=== PATIENT | female | born 1950 | race Caucasian/White ===

== ENCOUNTER 2017-11-12 13:43 | Emergency (ER) | payer OTHER ==
[~2017-11-12] VITALS: Ht 165.1 cm; Wt 55.5 kg
[2017-11-12 14:27] VITALS: BP 163/120; PULSE 69; RESP 20; TEMP 98.8; O2SAT 100
--- NOTE | 2017-11-12 15:39 | RADRPT ---
EXAM DATE/TIME: 11/12/2017 15:15 [facility] COMPARISON: No previous studies available for comparison. INDICATIONS : Patient complains of headache. RADIATION DOSE: 56.35 CTDIvol (mGy) MEDICAL HISTORY : Hypertension. SURGICAL HISTORY : None. ENCOUNTER: Initial ACUITY: 1 day PAIN SCALE: 7/10 LOCATION: cranial TECHNIQUE: Multiple contiguous axial images were obtained of the head. Using automated exposure control and adj ustment of the mA and/or kV according to patient size, radiation dose was kept as low as reasonably a chievable to obtain optimal diagnostic quality images. DICOM format image data is available electro nically for review and comparison. FINDINGS: Mild cerebral atrophy is noted. Mild to moderate periventricular and subcortical white matter small v essel ischemic changes are noted bilaterally. There is no acute infarct, acute hemorrhage, midline sh ift or extra-axial fluid collections. CONCLUSION: 1. Mild cerebral atrophy. 2. [id number] periventricular and subcortical white matter small vessel ischemic changes bilate rally. 3. No acute infarct, acute hemorrhage, mass effect or extra-axial fluid collections. Phani Smith MD on November 12, 2017 at 15:35 Board Certified Radiologist. This report was verified electronically.
--- NOTE | 2017-11-12 21:54 | PD ---
Physical Exam Date Seen by Provider: Nov 12, 2017 Time Seen by Provider: 16:56 Narrative 67-year-old female presents to the emergency department for evaluation of hypertension. She reports associated headache with pain currently 02/12. She denies any chest pain. She was seen at [facility] for UTI and sepsis for 5 day stay. She was discharged 2 days ago. Moderate severity Data Data Last Documented VS Vital Signs Date Time Temp Pulse Resp B/P (MAP) Pulse Ox O2 Delivery O2 Flow Rate FiO2 11/12/17 14:27 98.8 69 20 163/120 (134) 100 Orders Orders Complete Blood Count With Diff (11/12/17 14:31) Comprehensive Metabolic Panel (11/12/17 14:31) Prothrombin Time / Inr (Pt) (11/12/17 14:31) Act Partial Throm Time (Ptt) (11/12/17 14:31) Ct Brain W/O Iv Contrast(Rout) (11/12/17 ) MDM Supervised Visit with [place]: No Narrative Course 67-year-old female presents to the emergency department for evaluation of hypertension and headache. Patient was initially seen in triage. Workup is initiated. The patient left AGAINST MEDICAL ADVICE before she can be moved to medical bed per Diagnosis Primary Impression: Left against medical advice Disposition: 07 AGAINST MEDICAL ADVICE Belinda Akbar Nov 12, 2017 21:54
== END 2017-11-12 23:50 | disposition left against medical advice (07) ==
LOC: NED 13:43
DX: R51 Headache (principal); I10 Essential (primary) hypertension
CPT/HCPCS: 70450; 99283

== ENCOUNTER 2017-11-18 12:09 | Emergency (ER) | payer OTHER ==
[~2017-11-18] VITALS: Ht 165.1 cm; Wt 56.0 kg
[2017-11-18 12:15] VITALS: BP 123/63; PULSE 64; RESP 22; TEMP 99.2; O2SAT 99
[2017-11-18] MEDS ORDERED: SODIUM CHLORIDE 0.9% FLUSH 10 ML FLUSH IV FLUSH PRN (15:00)
[2017-11-18] MEDS ORDERED: ONDANSETRON HCL 4 MG/2 ML VIAL IVP ONE (15:00)
[2017-11-18] MEDS ORDERED: SODIUM CHLORID 0.9% 500 ML INJ 500 ML IV ONE (15:00)
[2017-11-18 16:05] LABS: AMORPHOUS SEDIMENT, URINE RARE; BACTERIA, URINE RARE /hpf; BLOOD, URINE NEG (NEG); GLUCOSE,URINE NEG (NEG); HYALINE CAST, URINE 43 /lpf (RARE); KETONE, URINE TRACE mg/dL (NEG); MUCUS URINE FEW /lpf (OCC); NITRITE,URINE NEG (NEG); PH, URINE 5.5 (5.0-8.5); SQUAMOUS EPITHELIAL CELL URINE 6 /hpf (0-5); URINE LEUKOCYTE ESTERASE SMALL (NEG)
[2017-11-18 16:06] LABS: AUTOMATED NEUTROPHIL # 2.9 TH/MM3 (1.8-7.7); BASOPHIL # 0.1 TH/MM3 (0-0.2); BASOPHIL % 0.9 % (0.0-2.0); EOSINOPHIL # 0.1 TH/MM3 (0-0.4); EOSINOPHIL % 1.9 % (0.0-4.0); HEMATOCRIT 29.4 % (35.0-46.0); HEMOGLOBIN 9.8 GM/DL (11.6-15.3); LYMPH % 41.2 % (9.0-44.0); LYMPHOCYTE # 2.5 TH/MM3 (1.0-4.8); MEAN CELL VOLUME 92.3 FL (80.0-100.0); MEAN CORPUSCULAR HEMOGLOBIN 30.9 PG (27.0-34.0); MEAN CORPUSCULAR HGB CONC 33.5 % (32.0-36.0); MEAN PLATELET VOLUME 7.5 FL (7.0-11.0); MONO % 9.7 % (0.0-8.0); MONOCYTE # 0.6 TH/MM3 (0-0.9); NEUT % 46.3 % (16.0-70.0); PLATELET COUNT 322 TH/MM3 (150-450); RED BLOOD COUNT 3.18 MIL/MM3 (4.00-5.30); RED CELL DISTRIBUTION WIDTH 14.3 % (11.6-17.2); WHITE BLOOD COUNT 6.2 TH/MM3 (4.0-11.0)
[2017-11-18 16:07] LABS: BILIRUBIN, URINE NEG (NEG); URINE COLOR AMBER (YELLW/STRAW)
[2017-11-18 16:24] LABS: ALKALINE PHOSPHATASE 57 U/L (45-117); TOTAL BILIRUBIN ADULT 0.3 MG/DL (0.2-1.0); TOTAL PROTEIN 5.9 GM/DL (6.4-8.2)
[2017-11-18 16:26] LABS: INTERNATIONAL NORMALIZED RATIO 1.1 RATIO; PROTHROMBIN TIME - PATIENT 11.2 SEC (9.8-11.6)
[2017-11-18] MEDS ORDERED: cefTRIAXone INJ 1,000 MG in SODIUM CHLORIDE 0.9% INJ 100 ML IV ONE (16:30)
--- NOTE | 2017-11-18 16:33 | RADRPT ---
EXAM DATE/TIME: 11/18/2017 15:59 [facility] COMPARISON: No previous studies available for comparison. INDICATIONS : Abdomen pain nausea, vomiting and diarrhea ORAL CONTRAST: No oral contrast ingested. RADIATION DOSE: 4.69 CTDIvol (mGy) MEDICAL HISTORY : Cerebrovascular disease. Renal failure, chronic. Diabetes SURGICAL HISTORY : None. ENCOUNTER: Initial ACUITY: 2 weeks PAIN SCALE: 5/10 LOCATION: abdomen TECHNIQUE: Volumetric scanning of the abdomen and pelvis was performed. Using automated exposure control and ad justment of the mA and/or kV according to patient size, radiation dose was kept as low as reasonably achievable to obtain optimal diagnostic quality images. DICOM format image data is available electro nically for review and comparison. FINDINGS: LOWER LUNGS: There is minimal increased density at the left lung base likely related to mild atelectasis or consol idation. This does have a mild amount of pericardial fluid measuring up to 9 mm along the posterior d ependent aspect of the heart. LIVER: There is low density seen throughout the liver. Focal hepatic lesions are not seen in this noncontras t CT examination. Gallbladder is not visualized. SPLEEN: Normal size without lesion. PANCREAS: Within normal limits. KIDNEYS: Normal in size and shape. There is no mass, stone, or hydronephrosis. ADRENAL GLANDS: Within normal limits. VASCULAR: There is no aortic aneurysm. Atherosclerotic calcifications are present. BOWEL/MESENTERY: There is possible mild thickening of the small bowel in the right lower abdomen likely related to dis tami small bowel. Surrounding inflammatory changes not seen. No bowel dilatation is seen. ABDOMINAL WALL: Within normal limits. RETROPERITONEUM: There is no lymphadenopathy. BLADDER: No wall thickening or mass. REPRODUCTIVE: The uterus is not seen. INGUINAL: There is no lymphadenopathy or hernia. MUSCULOSKELETAL: There is a right hip prosthesis present. CONCLUSION: 1. Mild thickening of some distal small bowel potentially relate to processes such as enteritis. 2. Mild hepatic steatosis. Red Carolina MD on November 18, 2017 at 16:25 Board Certified Radiologist. This report was verified electronically.
[2017-11-18 16:38] LABS: ALBUMIN 2.5 GM/DL (3.4-5.0); ALT (GPT) 9 U/L (10-53); AST (GOT) 15 U/L (15-37); BICARBONATE 25.3 MEQ/L (21.0-32.0); BLOOD UREA NITROGEN 4 MG/DL (7-18); CALCIUM 9.7 MG/DL (8.5-10.1); CHLORIDE 112 MEQ/L (98-107); GLOMERULAR FILTRATION RATE 32 ML/MIN (>89); GLUCOSE,RANDOM 91 MG/DL (74-106); SODIUM (NA) 144 MEQ/L (136-145)
--- NOTE | 2017-11-18 18:51 | PD ---
HPI Chief Complaint: GI Complaint Time Seen by Provider: 14:42 Travel History International Travel<30 days: No Contact w/Intl Traveler<30days: No Traveled to known affect area: No History of Present Illness HPI Patient is a 67-year-old female who comes in complaining of nausea and vomiting for 2 weeks. Per grandson, they have been to an outside hospital several times in her discharged home each time. He says she is unable to keep anything down. She says today she was vomiting green bile. She did say that she ate some toast this morning and did not vomit. She says she has some pain to her upper abdomen. She denies chest pain or shortness of breath. She says she was diagnosed with a urinary tract infection, but she does not think it is gone away. She was taking a few days of Cipro. She denies fever or chills. Severity is mild to moderate. PFSH Past Medical History Cerebrovascular Accident: Yes Diabetes: Yes Patient Takes Glucophage: No Influenza Vaccination: No Past Surgical History Joint Replacement: Yes (HIP) Social History Alcohol Use: No Tobacco Use: No Substance Use: No Allergies-Medications (Allergen,Severity, Reaction): Coded Allergies: codeine (Verified Allergy, Mild, 11/18/17) stomach upset Review of Systems Except as stated in HPI: all other systems reviewed are Neg General / Constitutional: No: Fever, Chills HENT: No: Headaches, Lightheadedness Cardiovascular: No: Chest Pain or Discomfort Respiratory: No: Shortness of Breath Gastrointestinal: Positive: Nausea, Vomiting Musculoskeletal: No: Myalgias Skin: No Rash, No Change in Pigmentation Physical Exam Narrative GENERAL: Awake and alert, in no acute distress. SKIN: Focused skin assessment warm/dry. HEAD: Atraumatic. Normocephalic. EYES: Pupils equal and round. No scleral icterus. ENT: No nasal bleeding or discharge. Mucous membranes pink and moist. NECK: Trachea midline. No JVD. CARDIOVASCULAR: Regular rate and rhythm. No murmur appreciated. RESPIRATORY: No accessory muscle use. Clear to auscultation. Breath sounds equal bilaterally. GASTROINTESTINAL: Abdomen soft, nondistended. Tender to palpation of the suprapubic area. MUSCULOSKELETAL: No obvious deformities. No clubbing. No cyanosis. No edema. NEUROLOGICAL: Awake and alert. No obvious cranial nerve deficits. Motor grossly within normal limits. Normal speech. PSYCHIATRIC: Appropriate mood and affect; insight and judgment normal. Data Data Last Documented VS Vital Signs Date Time Temp Pulse Resp B/P (MAP) Pulse Ox O2 Delivery O2 Flow Rate FiO2 11/18/17 12:15 99.2 64 22 123/63 (83) 99 Orders Orders Complete Blood Count With Diff (11/18/17 14:57) Comprehensive Metabolic Panel (11/18/17 14:57) Lipase (11/18/17 14:57) Lactic Acid (11/18/17 14:57) Prothrombin Time / Inr (Pt) (11/18/17 14:57) Act Partial Throm Time (Ptt) (11/18/17 14:57) Urinalysis - C+S If Indicated (11/18/17 14:57) Ct Abd/Pel W/O Iv Contrast (11/18/17 14:57) Iv Access Insert/Monitor (11/18/17 14:57) Ecg Monitoring (11/18/17 14:57) Oximetry (11/18/17 14:57) Ondansetron Inj (Zofran Inj) (11/18/17 15:00) Sodium Chloride 0.9% Flush (Ns Flush) (11/18/17 15:00) Sodium Chlorid 0.9% 500 Ml Inj (Ns 500 M (11/18/17 15:00) Urine Culture (11/18/17 15:30) Ceftriaxone Inj (Rocephin Inj) (11/18/17 16:30) Cyclobenzaprine (Flexeril) (11/18/17 19:00) Labs Laboratory Tests Test 11/18/17 15:30 White Blood Count 6.2 TH/MM3 Red Blood Count 3.18 MIL/MM3 Hemoglobin 9.8 GM/DL Hematocrit 29.4 % Mean Corpuscular Volume 92.3 FL Mean Corpuscular Hemoglobin 30.9 PG Mean Corpuscular Hemoglobin Concent 33.5 % Red Cell Distribution Width 14.3 % Platelet Count 322 TH/MM3 Mean Platelet Volume 7.5 FL Neutrophils (%) (Auto) 46.3 % Lymphocytes (%) (Auto) 41.2 % Monocytes (%) (Auto) 9.7 % Eosinophils (%) (Auto) 1.9 % Basophils (%) (Auto) 0.9 % Neutrophils # (Auto) 2.9 TH/MM3 Lymphocytes # (Auto) 2.5 TH/MM3 Monocytes # (Auto) 0.6 TH/MM3 Eosinophils # (Auto) 0.1 TH/MM3 Basophils # (Auto) 0.1 TH/MM3 CBC Comment DIFF FINAL Differential Comment Prothrombin Time 11.2 SEC Prothromb Time International Ratio 1.1 RATIO Activated Partial Thromboplast Time 24.3 SEC Urine Color JOHNATHAN Urine Turbidity HAZY Urine pH 5.5 Urine Specific [place] 1.029 Urine Protein 300 mg/dL Urine Glucose (UA) NEG mg/dL Urine Ketones TRACE mg/dL Urine Occult Blood NEG Urine Nitrite NEG Urine Bilirubin NEG Urine Urobilinogen 2.0 MG/DL Urine Leukocyte Esterase SMALL Urine RBC LESS THAN 1 /hpf Urine WBC 9 /hpf Urine Squamous Epithelial Cells 6 /hpf Urine Amorphous Sediment RARE Urine Bacteria RARE /hpf Urine Hyaline Casts 43 /lpf Urine Mucus FEW /lpf Microscopic Urinalysis Comment CULTURE INDICATED Blood Urea Nitrogen 4 MG/DL Creatinine 1.60 MG/DL Random Glucose 91 MG/DL Total Protein 5.9 GM/DL Albumin 2.5 GM/DL Calcium Level 9.7 MG/DL Alkaline Phosphatase 57 U/L Aspartate Amino Transf (AST/SGOT) 15 U/L Alanine Aminotransferase (ALT/SGPT) 9 U/L Total Bilirubin 0.3 MG/DL Sodium Level 144 MEQ/L Potassium Level 3.5 MEQ/L Chloride Level 112 MEQ/L Carbon Dioxide Level 25.3 MEQ/L Anion Gap 7 MEQ/L Estimat Glomerular Filtration Rate 32 ML/MIN Lactic Acid Level 0.9 mmol/L Lipase 61 U/L [facility] Medical Decision Making Medical Screen Exam Complete: Yes Emergency Medical Condition: Yes Medical Record Reviewed: Yes Differential Diagnosis UTI versus dehydration versus electrolyte abnormality versus gastroparesis Narrative Course Patient is a 67-year-old female who comes in complaining of nausea and vomiting. Exam shows tenderness of suprapubic area. IV established, labs sent. Labs show no acute abnormalities. CT abdomen pelvis performed shows possible thickening of the distal colon. Urinalysis is positive for UTI. Patient given IV fluids, Zofran, Rocephin. Last 24 hours Impressions Abdomen/Pelvis CT 11/18/17 [id number] Signed Impressions: Service Date/Time: Saturday, November 18, 2017 15:59 - CONCLUSION: 1. Mild thickening of some distal small bowel potentially relate to processes such as enteritis. 2. Mild hepatic steatosis. Red Carolina MD Patient is feeling better. She is requesting a dose of Flexeril, which she takes at home from leg cramps. She was given this. She was able to drink water without vomiting. She was offered admission, but would like to try going home. Discharged with prescription for Keflex. Advised to stop the Cipro. Given a prescription for Zofran. Advised follow-up with gastroenterology. Advised return anytime for any worsening symptoms. Diagnosis Primary Impression: UTI (urinary tract infection) Qualified Codes: N30.00 - Acute cystitis without hematuria Additional Impression: Nausea & vomiting Qualified Codes: R11.2 - Nausea with vomiting, unspecified Referrals: Erika Flynn MD call for appointment Patient Instructions: Acute Nausea and Vomiting (ED), General Instructions, Urinary Tract Infection in Women (ED) Additional Instructions: Follow up with gastroenterology. Take Zofran as needed for nausea. Take all of your antibiotic. Return to the ED as needed for any worsening symptoms. Scripts Cephalexin (Keflex) 500 Mg Capsule 500 MG PO Q6H for Infection for 7 Days, #28 CAP 0 Refills Prov: Belle Medley MD 11/18/17 Ondansetron Odt (Zofran Odt) 4 Mg Tab 4 MG SL Q6HR Y for Nausea/Vomiting, #12 TAB 0 Refills Prov: Belle Medley MD 11/18/17 Disposition: 01 DISCHARGE HOME Condition: Stable Belle Medley MD Nov 18, 2017 18:51
[2017-11-18] MEDS ORDERED: CYCLOBENZAPRINE HCL 10 MG TAB PO ONE (19:00)
[2017-11-18] MEDS ORDERED: CEPH-460 PO (19:15)
[2017-11-18] MEDS ORDERED: ZOFR4TAB3 SL (19:15)
== END 2017-11-18 19:42 | disposition home or self-care (01) ==
LOC: NEPE 12:09
DX: N30.00 Acute cystitis without hematuria (principal); R11.2 Nausea with vomiting, unspecified; R10.30 Lower abdominal pain, unspecified; E11.9 Type 2 diabetes mellitus without complications; Z86.73 Personal history of transient ischemic attack (TIA), and cerebral infarction without residual deficits
CPT/HCPCS: 74176; 80053; 81001; 83605; 83690; 85025; 85610; 85730; 87086; 96374; 96375; 99284; J0696; J2405; J7040